=== PATIENT | male | born 1960 | race Caucasian/White ===

== ENCOUNTER 2020-01-27 15:49 | Inpatient (IN) | payer MEDICARE, OTHER, SELFPAY ==
[2020-01-29 03:56] VITALS: BMI 58.0
[2020-01-30] VITALS (12 sets, daily range): BP systolic 127–158; BP diastolic 66–94; PULSE 68–87; RESP 18–20; TEMP 36.3–37.1; O2SAT 94–96
[2020-01-30] MEDS: oxyCODONE HCl Immed Release 5 MG TABLET 10 MG PO ×4 (01:05→20:39)
[2020-01-30] MEDS: Morphine Sulfate 4 MG/ML CARTRIDGE IVPUSH ×7 (01:05→21:46)
[2020-01-30] MEDS: Omeprazole 20 MG CAPSULE.DR PO (08:07)
[2020-01-30] MEDS: 0.9 % Sodium Chloride Flush 3 ML SYRINGE 2 ML IVFLUSH ×3 (08:09→18:00)
--- NOTE | 2020-01-30 08:41 | P.PNGS_ITS ---
Subjective Subjective Interval history: I feel pretty good today, still some incisional pain. Denies nausea or vomiting. Physical Exam Vital Signs and I&O and Narrative: Vital Signs and I&O: Vital Signs Temp 98.3 F 01/30/20 07:58 Pulse 80 01/30/20 07:58 Resp 18 01/30/20 07:58 BP 158/94 H 01/30/20 07:58 Pulse Ox 96 01/30/20 07:58 Intake & Output 01/29/20 01/30/20 01/30/20 18:59 06:59 18:59 Intake Total 400 / 400 Balance 400 / 400 Intake: Intake, Oral Renzo unt 400 / 400 Other: Number of Incont inent Voids 1 Number of Bowel Movements 1 Urine Male Cath. Urine Color Yellow Stool Bedside Commode Stool Color Brown Stool Consistenc y Liquid Continuous Bladd er Irrigation Fluid - Amount I nstilled Condom 500 Body Mass Index 58.0 Resp: Effort & Inspection: normal respiratory effort, no audible wheezes and no cough GI: Inspection: Yes normal to inspection, Yes distended and Yes incision Palpation (GI): Soft to palpation, no guarding and not rigid Auscultation: no rmal bowel sounds Progress Note: A&P Assessment and plan (1) Incisional hernia of anterior abdominal wall without obstruction or gangrene: Status: Acute Assessment and Plan: Patient with a wound seperation in the upper incision. Will return later today to suture in incision closed. Fall Risk Details Current Medications: Current Medications Generic Name Dose Route Start Last Admin Trade Name Freq PRN Reason Stop Dose Admin Anastrozole 1 mg 01/30/20 09:00 Anastrozole 1 Mg Tablet PO DAILY [facility] Apixaban 5 mg 01/30/20 09:00 Apixaban 5 Mg Tablet PO BID [facility] Bupropion HCl 300 mg 01/30/20 09:00 Bupropion Hcl Xl 300 Mg Tab.Er.24h PO DAILY [facility] Duloxetine HCl 60 mg 01/30/20 09:00 Duloxetine Hcl 60 Mg Capsule.Dr PO DAILY [facility] Furosemide 60 mg 01/30/20 09:00 Furosemide 20 Mg Tablet PO BID [facility] Protocol Acetaminophen 1,000 mg in 100 mls @ 400 mls/hr 01/30/20 00:00 Ofirmev IV Q6H PRN ABDOMINAL PAIN Losartan Potassium 25 mg 01/30/20 09:00 Losartan Potassium 25 Mg Tablet PO DAILY [facility] Protocol Melatonin 6 mg 01/30/20 17:08 Melatonin 3 Mg Tablet PO BEDTIME PRN Insomnia Metoprolol Tartrate 25 mg 01/30/20 09:00 Metoprolol Tartrate 25 Mg Tablet PO BID [facility] Protocol Morphine Sulfate 4 mg 01/30/20 00:00 01/30/20 06:42 Morphine Sulfate 4 Mg/Ml Cartridge IVPUSH 4 mg Q3H PRN Administration Pain, Moderate (Pain Scale 4-6 Morphine Sulfate 5 mg 01/30/20 00:00 Morphine Sulfate 8 Mg/Ml Vial IVPUSH Q4H PRN Pain, Severe (Pain Scale 7-10) Omeprazole 20 mg 01/30/20 06:30 01/30/20 08:07 Omeprazole 20 Mg Capsule.Dr PO 20 mg DAILY@0630 [facility] Administration Ondansetron HCl 4 mg 01/30/20 00:00 Ondansetron Hcl 4 Mg/2 Ml Vial IVPUSH Q8H PRN Nausea and Vomiting Oxycodone HCl 5 mg 01/30/20 00:00 Oxycodone Hcl Immed Release 5 Mg Tablet PO Q4H PRN Pain, Moderate (Pain Scale 4-6 Oxycodone HCl 10 mg 01/30/20 00:00 01/30/20 04:30 Oxycodone Hcl Immed Release 5 Mg Tablet PO 10 mg Q4H PRN Administration Pain, Severe (Pain Scale 7-10) Sodium Chloride 2 ml 01/30/20 00:00 01/30/20 08:09 0.9 % Sodium Chloride Flush 3 Ml Syringe IVFLUSH 2 ml QSHIFT [facility] Administration Zolpidem Tartrate 5 mg 01/30/20 00:00 Zolpidem Tartrate 5 Mg Tablet PO BEDTIME PRN Insomnia Time Spent With Patient Time: Total time spent is greater than 50% in coordination of care (as documented) at patient's floor/unit and/or counseling patient: Time with patient: 15 - 24 minutes
[2020-01-30] MEDS: Apixaban 5 MG TABLET PO ×2 (10:29→20:39)
[2020-01-30] MEDS: Anastrozole 1 MG TABLET PO (10:30)
[2020-01-30] MEDS: Losartan Potassium 25 MG TABLET PO (10:31)
[2020-01-30] MEDS: DULoxetine HCl 60 MG CAPSULE.DR PO (10:31)
[2020-01-30] MEDS: buPROPion HCl XL 300 MG TAB.ER.24H PO (10:31)
[2020-01-30] MEDS: Furosemide 20 MG TABLET 60 MG PO ×2 (10:38→20:39)
[2020-01-30] MEDS: Metoprolol Tartrate 25 MG TABLET PO ×2 (10:39→20:39)
--- NOTE | 2020-01-30 15:59 | HO.PM.IMPN ---
Subjective Subjective Date of Service: 01/30/20 Interval History: patient admitted with abdominal pain diagnosed to have multiple ventral hernia status post repair patient abdominal pain is stable denies nausea vomiting had a bowel movement tolerating diet. 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 Physical Exam Vital Signs and I&O and Narrative: Vital Signs and I&O: Vital Signs Temp 97.9 F 01/30/20 15:25 Pulse 84 01/30/20 15:25 Resp 18 01/30/20 15:25 BP 133/74 01/30/20 15:25 Pulse Ox 94 01/30/20 15:25 Intake & Output 01/29/20 01/30/20 01/30/20 18:59 06:59 18:59 Intake Total 400 / 400 420 / 420 Balance 400 / 400 420 / 420 Intake: Intake, Oral Renzo unt 400 / 400 420 / 420 Other: Lunch % Eaten 100% Number of Incont inent Voids 1 Number of Bowel Movements 1 1 Urine Male Cath. Urine Color Yellow Stool Bedside Commode Bathroom Stool Color Brown Brown Stool Consistenc y Liquid Formed Continuous Bladd er Irrigation Fluid - Amount I nstilled Condom 500 Body Mass Index 58.0 Physical Exam Constitutional Awake and alert, No apparent distress Neck is supple Cardiovascular regular rate Respiratory clear to auscultation, No respiratory distress, Gastrointestinal Soft, mild incisional tenderness to palpation, No guarding, no rigidity , wound dehiscence proximal wound. Extremities No clubbing, No cyanosis, No edema, chronic discoloration lower extremities due to chronic edema Neurological Alert & oriented x 3 Objective Data Current Medications Generic Name Dose Route Start Last Admin Trade Name Freq PRN Reason Stop Dose Admin Anastrozole 1 mg 01/30/20 09:00 01/30/20 10:30 Anastrozole 1 Mg Tablet PO 1 mg DAILY [facility] Administration Apixaban 5 mg 01/30/20 09:00 01/30/20 10:29 Apixaban 5 Mg Tablet PO 5 mg BID [facility] Administration Bupropion HCl 300 mg 01/30/20 09:00 01/30/20 10:31 Bupropion Hcl Xl 300 Mg Tab.Er.24h PO 300 mg DAILY [facility] Administration Duloxetine HCl 60 mg 01/30/20 09:00 01/30/20 10:31 Duloxetine Hcl 60 Mg Capsule.Dr PO 60 mg DAILY [facility] Administration Furosemide 60 mg 01/30/20 09:00 01/30/20 10:38 Furosemide 20 Mg Tablet PO 60 mg BID [facility] Administration Protocol Acetaminophen 1,000 mg in 100 mls @ 400 mls/hr 01/30/20 00:00 Ofirmev IV Q6H PRN ABDOMINAL PAIN Losartan Potassium 25 mg 01/30/20 09:00 01/30/20 10:31 Losartan Potassium 25 Mg Tablet PO 25 mg DAILY [facility] Administration Protocol Melatonin 6 mg 01/30/20 17:08 Melatonin 3 Mg Tablet PO BEDTIME PRN Insomnia Metoprolol Tartrate 25 mg 01/30/20 09:00 01/30/20 10:39 Metoprolol Tartrate 25 Mg Tablet PO 25 mg BID [facility] Administration Protocol Morphine Sulfate 4 mg 01/30/20 00:00 01/30/20 14:43 Morphine Sulfate 4 Mg/Ml Cartridge IVPUSH 4 mg Q3H PRN Administration Pain, Moderate (Pain Scale 4-6 Morphine Sulfate 5 mg 01/30/20 00:00 Morphine Sulfate 8 Mg/Ml Vial IVPUSH Q4H PRN Pain, Severe (Pain Scale 7-10) Omeprazole 20 mg 01/30/20 06:30 01/30/20 08:07 Omeprazole 20 Mg Capsule. PO 20 mg DAILY@0630 [facility] Administration Ondansetron HCl 4 mg 01/30/20 00:00 Ondansetron Hcl 4 Mg/2 Ml Vial IVPUSH Q8H PRN Nausea and Vomiting Oxycodone HCl 5 mg 01/30/20 00:00 Oxycodone Hcl Immed Release 5 Mg Tablet PO Q4H PRN Pain, Moderate (Pain Scale 4-6 Oxycodone HCl 10 mg 01/30/20 00:00 01/30/20 13:18 Oxycodone Hcl Immed Release 5 Mg Tablet PO 10 mg Q4H PRN Administration Pain, Severe (Pain Scale 7-10) Sodium Chloride 2 ml 01/30/20 00:00 01/30/20 08:09 0.9 % Sodium Chloride Flush 3 Ml Syringe IVFLUSH 2 ml QSHIFT [facility] Administration Zolpidem Tartrate 5 mg 01/30/20 00:00 Zolpidem Tartrate 5 Mg Tablet PO BEDTIME PRN Insomnia Labs CBC & Chem 7: 01/28/20 05:52 01/28/20 05:52 Labs: Laboratory Results - last 24 hr 01/27/20 01/27/20 01/27/20 10:58 11:00 11:00 MCV Not Rcvd MCH Not Rcvd MCHC Not Rcvd RDW Coeff of Harleen Not Rcvd Plt Count Not Rcvd MPV Not Rcvd Immature Gran % (Auto) Neut % (Auto) Lymph % (Auto) [place] % (Auto) Eos % (Auto) Baso % (Auto) Abs Immat Gran (auto) Absolute Lymphs (auto) Absolute Monos (auto) Absolute Eos (auto) Absolute Basos (auto) Absolute Nucleated RBC Not Rcvd Nucleated RBC % (auto) Not Rcvd Absolute Neutrophils Bicarbonate Not Rcvd Anion Gap Not Rcvd Estimated Creat Clear Not Rcvd Est GFR (Non-Af Amer) Not Rcvd Random Glucose Fasting Glucose Not Rcvd Calcium Not Rcvd Coronavirus (PCR) NEGATIVE Blood Type ABO Group Antibody Screen 01/27/20 01/27/20 01/28/20 11:00 11:25 05:52 MCV MCH MCHC RDW Coeff of Harleen Plt Count MPV Immature Gran % (Auto) Neut % (Auto) Lymph % (Auto) [place] % (Auto) Eos % (Auto) Baso % (Auto) Abs Immat Gran (auto) Absolute Lymphs (auto) Absolute Monos (auto) Absolute Eos (auto) Absolute Basos (auto) Absolute Nucleated RBC Nucleated RBC % (auto) Absolute Neutrophils Bicarbonate 28 Anion Gap 14 Estimated Creat Clear 193.8 Est GFR (Non-Af Amer) > 60 Random Glucose 127 H Fasting Glucose Calcium 8.3 L D Coronavirus (PCR) Blood Type A Positive ABO Group Not Rcvd Antibody Screen NEGATIVE 01/28/20 05:52 MCV 100.9 H MCH 32.1 MCHC 31.8 RDW Coeff of Harleen 15.1 Plt Count 196 MPV 10.1 Immature Gran % (Auto) 0.4 Neut % (Auto) 85.3 H Lymph % (Auto) 5.9 L [place] % (Auto) 8.2 Eos % (Auto) 0.0 Baso % (Auto) 0.2 Abs Immat Gran (auto) 0.05 H Absolute Lymphs (auto) 0.7 L Absolute Monos (auto) 1.0 Absolute Eos (auto) 0.0 Absolute Basos (auto) 0.0 Absolute Nucleated RBC 0.000 Nucleated RBC % (auto) 0.0 Absolute Neutrophils 10.2 H Bicarbonate Anion Gap Estimated Creat Clear Est GFR (Non-Af Amer) Random Glucose Fasting Glucose Calcium Coronavirus (PCR) Blood Type ABO Group Antibody Screen
[2020-01-31] VITALS (10 sets, daily range): BP systolic 140–154; BP diastolic 75–86; PULSE 68–72; RESP 16–20; TEMP 35.6–36.9; O2SAT 92–97
[2020-01-31] MEDS: 0.9 % Sodium Chloride Flush 3 ML SYRINGE 2 ML IVFLUSH ×2 (01:34→08:28)
[2020-01-31] MEDS: Morphine Sulfate 4 MG/ML CARTRIDGE IVPUSH ×5 (02:03→15:33)
[2020-01-31] MEDS: Acetaminophen 325 MG TABLET 650 MG PO (02:22)
[2020-01-31] MEDS: oxyCODONE HCl Immed Release 5 MG TABLET 10 MG PO ×3 (04:16→14:03)
[2020-01-31] MEDS: Omeprazole 20 MG CAPSULE.DR PO (06:20)
--- NOTE | 2020-01-31 08:22 | P.PNGS_ITS ---
Subjective Subjective Interval history: No new complaints. Incisional pain improving. Tolerating solid diet, moving his bowels. Has been OOB and ambulating. <AMBROSIO Martinez Last Filed: 01/31/20 08:32> Physical Exam Vital Signs and I&O and Narrative: Vital Signs and I&O: Vital Signs Temp 96.1 F L 01/31/20 07:43 Pulse 71 01/31/20 07:43 Resp 16 01/31/20 07:43 BP 154/86 H 01/31/20 07:43 Pulse Ox 92 01/31/20 07:43 Intake & Output 01/30/20 01/31/20 01/31/20 18:59 06:59 18:59 Intake Total 840 / 1500 660 / 1500 Output Total 500 / 500 Balance 340 / 1000 660 / 1000 Urine Output (Aver age ml/kg/hr) 0.21 0.21 Intake: Intake, Oral Renzo unt 840 / 1500 660 / 1500 Output: Output, Urine Am ount 500 / 500 Other: Lunch % Eaten 100% Dinner % Eaten 100% Number of Bowel Movements 1 Urine Urinal Urine Color Yellow Stool Bathroom Bathroom Stool Color Brown Brown Stool Consistenc y Formed Formed Body Mass Index 58.0 <AMBROSIO Martinez Last Filed: 01/31/20 08:32> Const: General: comfortable, no acute distress and alert <AMBROSIO Martinez Last Filed: 01/31/20 08:32> Orientation/consciousness: patient oriented x3 <AMBROSIO Martinez Last Filed: 01/31/20 08:32> Eyes: Sclerae: sclerae normal <AMBROSIO Martinez Last Filed: 01/31/20 08:32> Resp: Effort & Inspection: normal respiratory effort <AMBROSIO Martinez Filed: 01/31/20 08:32> Cardio: Rate: regular rate <AMBROSIO Martinez Filed: 01/31/20 08:32> GI: Inspection: Yes incision (dev and sutures intact, some erythema centrally) <AMBROSIO Martinez Last Filed: 01/31/20 08:32> Palpation (GI): Soft to palpation, Tenderness to palpation present (GI) (surrounding incisions), no guarding and not rigid <Vanda Gunderson PA-C Syeda Last Filed: 01/31/20 08:32> Skin: Rashes: no rashes <AMBROSIO Martinez Last Filed: 01/31/20 08:32> Neuro: General: patient oriented x3 <AMBROSIO Martinez Last Filed: 01/31/20 08:32> Progress Note: A&P Assessment and plan (1) Abdominal pain: Status: Acute <AMBROSIO Martinez Last Filed: 01/31/20 08:32> (2) Morbid obesity with BMI of 50.0-59.9, adult: Status: Acute <AMBROSIO Martinez Last Filed: 01/31/20 08:32> (3) Atrial fibrillation: Status: Acute <AMBROSIO Martinez Last Filed: 01/31/20 08:32> (4) Incisional hernia of anterior abdominal wall without obstruction or gangrene: Status: Acute <Vanda Gunderson PA-C Syeda Last Filed: 01/31/20 08:32> Assessment and Plan: s/p repair of multiple incisional hernias with mesh - some separation of upper incision, sutures placed yesterday which remain intact. Doing well post op, comfortable. Incision is clean with some mild erythema likely from irritation from dev/sutures. Patient feels ready for discharge today. Will d/c to home with VNA services. <Vanda Gunderson PA-C Syeda Last Filed: 01/31/20 08:32> Fall Risk Details Current Medications: Current Medications Generic Name Dose Route Start Last Admin Trade Name Freq PRN Reason Stop Dose Admin Acetaminophen 650 mg 01/31/20 02:17 01/31/20 02:22 Acetaminophen 325 Mg Tablet PO 650 mg Q6H PRN Administration Headache Anastrozole 1 mg 01/30/20 09:00 01/30/20 10:30 Anastrozole 1 Mg Tablet PO 1 mg DAILY [facility] Administration Apixaban 5 mg 01/30/20 09:00 01/30/20 20:39 Apixaban 5 Mg Tablet PO 5 mg BID [facility] Administration Bupropion HCl 300 mg 01/30/20 09:00 01/30/20 10:31 Bupropion Hcl Xl 300 Mg Tab.Er.24h PO 300 mg DAILY [facility] Administration Duloxetine HCl 60 mg 01/30/20 09:00 01/30/20 10:31 Duloxetine Hcl 60 Mg Capsule. PO 60 mg DAILY [facility] Administration Furosemide 60 mg 01/30/20 09:00 01/30/20 20:39 Furosemide 20 Mg Tablet PO 60 mg BID [facility] Administration Protocol Acetaminophen 1,000 mg in 100 mls @ 400 mls/hr 01/30/20 00:00 Ofirmev IV Q6H PRN ABDOMINAL PAIN Losartan Potassium 25 mg 01/30/20 09:00 01/30/20 10:31 Losartan Potassium 25 Mg Tablet PO 25 mg DAILY [facility] Administration Protocol Melatonin 6 mg 01/30/20 17:08 Melatonin 3 Mg Tablet PO BEDTIME PRN Insomnia Metoprolol Tartrate 25 mg 01/30/20 09:00 01/30/20 20:39 Metoprolol Tartrate 25 Mg Tablet PO 25 mg BID [facility] Administration Protocol Morphine Sulfate 4 mg 01/30/20 00:00 01/31/20 06:20 Morphine Sulfate 4 Mg/Ml Cartridge IVPUSH 4 mg Q3H PRN Administration Pain, Moderate (Pain Scale 4-6 Morphine Sulfate 5 mg 01/30/20 00:00 Morphine Sulfate 8 Mg/Ml Vial IVPUSH Q4H PRN Pain, Severe (Pain Scale 7-10) Omeprazole 20 mg 01/30/20 06:30 01/31/20 06:20 Omeprazole 20 Mg Capsule. PO 20 mg DAILY@0630 [facility] Administration Ondansetron HCl 4 mg 01/30/20 00:00 Ondansetron Hcl 4 Mg/2 Ml Vial IVPUSH Q8H PRN Nausea and Vomiting Oxycodone HCl 5 mg 01/30/20 00:00 Oxycodone Hcl Immed Release 5 Mg Tablet PO Q4H PRN Pain, Moderate (Pain Scale 4-6 Oxycodone HCl 10 mg 01/30/20 00:00 01/31/20 04:16 Oxycodone Hcl Immed Release 5 Mg Tablet PO 10 mg Q4H PRN Administration Pain, Severe (Pain Scale 7-10) Sodium Chloride 2 ml 01/30/20 00:00 01/31/20 01:34 0.9 % Sodium Chloride Flush 3 Ml Syringe IVFLUSH 2 ml QSHIFT [facility] Administration Zolpidem Tartrate 5 mg 01/30/20 00:00 Zolpidem Tartrate 5 Mg Tablet PO BEDTIME PRN Insomnia <AMBROSIO Martinez Last Filed: 01/31/20 08:32> Time Spent With Patient Time: Total time spent is greater than 50% in coordination of care (as d ocumented) at patient's floor/unit and/or counseling patient: <AMBROSIO Martinez Last Filed: 01/31/20 08:32> Time with patient: 15 - 24 minutes <AMBROSIO Martinez Last Filed: 01/31/20 08:32> No Severe Sepsis: No Severe Sepsis <AMBROSIO Martinez Last Filed: 01/31/20 08:32>
[2020-01-31] MEDS: Anastrozole 1 MG TABLET PO (08:24)
[2020-01-31] MEDS: buPROPion HCl XL 300 MG TAB.ER.24H PO (08:24)
[2020-01-31] MEDS: DULoxetine HCl 60 MG CAPSULE.DR PO (08:24)
[2020-01-31] MEDS: Furosemide 20 MG TABLET 60 MG PO (08:24)
[2020-01-31] MEDS: Apixaban 5 MG TABLET PO (08:25)
[2020-01-31] MEDS: Losartan Potassium 25 MG TABLET PO (08:26)
[2020-01-31] MEDS: Metoprolol Tartrate 25 MG TABLET PO (08:27)
--- NOTE | 2020-01-31 09:04 | MHC.CM.PN ---
Pt will be discharged home today with no services pt will arrange transportation
--- NOTE | 2020-01-31 13:01 | P.DS_ITS ---
DS: Providers Provider Date of admission: 01/27/20 15:49 Primary care physician: Unknown Physician Consults: 01/29/20 06:30 Consult to Hospitalist Routine Consulting Provider: Yelena Santos Reason for consultation: Afib, H/O CHF, S/P repair of incisional hernias DS: Diagnosis Discharge Diagnosis (1) Abdominal pain: Status: Acute (2) Morbid obesity with BMI of 50.0-59.9, adult: Status: Acute (3) Atrial fibrillation: Status: Acute (4) Incisional hernia of anterior abdominal wall without obstruction or gangrene: Status: Acute DS: Summary Hospital Course Hospital Course: Brief HPI: 59 year old male with previous complicated surgical history including umbilical hernia repair 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 CT scan was peformed which demonstrated approximately 5 incisional hernias throughout the anterior abdominal wall. He now presents for repair. On 01/27/20, repair of multiple incisional hernias with mesh was performed by Dr. Salas Guardado without immediate complications. The patient tolerated the procedure well and was admitted to [facility] post operatively. A hospitalist consult was obtained for management of his medical comorbidities. The patient had an uncomplicated post operative course. He was advanced to a solid diet on POD #1 and his eliquis was resumed. He initially had difficulty with pain control and his home oxycodone dose was resumed with morphine IV PRN ordered with better control over the next few post operative days. He was ambulated and seen by PT. His activity increased gradually during his stay. During his dressing change on POD #3, he was noted to have some separation of the upper incision which was repaired with nylon sutures. On POD #4, he was tolerating a solid diet with good GI fxn. His incisional pain was well controlled. He was OOB and ambulating without difficulty. He had a benign abdominal exam and clean and intact incision. He felt ready for discharge. He was discharged to home on 01/31/20 in stable condition with VNA services. Status at Discharge Functional status at discharge: uses cane/walker Overall status at discharge: patient is progressing back to baseline Time Spent with Patient Time attestation: Total time spent providing and/or coordinating discharge services: Time spent: Less than 30 minutes Specific discharge activities: No heavy lifting, exercise, tub bath. Quality: VTE Deep Vein Thrombosis/Pulmonary Embolism Present on Admission: No Physical Exam Vital Signs and I&O and Narrative: Vital Signs and I&O: Vital Signs Temp 97.3 F 01/31/20 11:22 Pulse 72 01/31/20 11:22 Resp 20 01/31/20 12:29 BP 154/75 H 01/31/20 11:22 Pulse Ox 97 01/31/20 11:22 Intake & Output 01/30/20 01/31/20 01/31/20 18:59 06:59 18:59 Intake Total 840 / 1500 660 / 1500 100 / 100 Output Total 500 / 500 850 / 850 Balance 340 / 1000 660 / 1000 -750 / -750 Urine Output (Aver age ml/kg/hr) 0.21 0.21 0.35 Intake: Intake, Oral Renzo unt 840 / 1500 660 / 1500 100 / 100 Output: Output, Urine Am ount 500 / 500 850 / 850 Other: Breakfast % Eate n 100% Lunch % Eaten 100% Dinner % Eaten 100% Number of Bowel Movements 1 Urine Urinal Urine Color Yellow Stool Bathroom Bathroom Stool Color Brown Brown Stool Consistenc y Formed Formed Body Mass Index 58.0 Const: General: comfortable, no acute distress and alert Orientation/consciousness: patient oriented x3 Eyes: Sclerae: sclerae normal Resp: Effort & Inspection: normal respiratory effort GI: Inspection: Yes incision (some mild erythema centrally of both incisions) Palpation (GI): Soft to palpation, Tenderness to palpation present (GI) (mild, at incision), no guarding, not rigid and No Rebound tenderness present Skin: Rashes: no rashes Neuro: General: patient oriented x3 DS: Data Data Completed and Pending Labs on day of discharge: Labs from last 24 hours 01/27/20 11:25 Blood Type A Positive Antibody Screen NEGATIVE Discharge Plan Discharge Patient Disposition: Home Health Service Referrals: Salas Guardado MD [Physician] - 1 Week Physician,Unknown [Primary Care Provider] - Discharge Medications: Continued multivitamin Tablet 1 tab PO DAILY RF: 0 pantoprazole [Protonix] 40 mg Tablet,Delayed Release (Dr/Ec) 40 mg PO DAILY RF: 0 metoprolol tartrate 25 mg Tablet 25 mg PO BID RF: 0 oxycodone 10 mg Tablet 10 mg PO Q6H PRN (Reason: Pain (Scale Score 4-6)) RF: 0 wheat dextrin 1 gram Tablet PO RF: 0 raspberry ketone 100 mg Capsule 100 mg PO DAILY RF: 0 COMPOUND PAIN CREME cream 1 topical DAILY RF: 0 Cbd Oil oil 1 topical DAILY RF: 0 Thca Oil oil 1 PO DAILY RF: 0 Tumeric tablet 400 mg PO DAILY RF: 0 testosterone cypionate 200 mg/mL oil 100 mg IM Q2W RF: 0 anastrozole 1 mg tablet 1 mg PO DAILY RF: 0 acetaminophen [Tylenol Extra Strength] 500 mg Tablet 1,000 mg PO Q6H PRN (Reason: Pain) RF: 0 calcium carbonate [Calcium 600] 600 mg calcium (1,500 mg) Tablet 600 mg PO DAILY RF: 0 acyclovir 5 % Cream 1 applic TOPICAL RF: 0 bupropion HCl 300 mg tablet extended release 24 hr 300 mg PO QAM RF: 0 duloxetine 60 mg capsule,delayed release(DR/EC) 60 mg PO DAILY RF: 0 cholecalciferol (vitamin D3) 125 mcg (5,000 unit) Tablet 125 mcg PO DAILY RF: 0 Eliquis 5 mg tablet 5 mg PO BID RF: 0 loperamide [Imodium A-D] 2 mg Capsule 2 mg PO QID PRN (Reason: Diarrhea) RF: 0 melatonin 3 mg Tablet 6 mg PO BEDTIME PRN (Reason: Insomnia) RF: 0 losartan 25 mg tablet 25 mg PO DAILY RF: 0 furosemide 20 mg tablet 60 mg PO BID RF: 0 Culturelle PO DAILY RF: 0 Discharge Orders: Discharge Order (Routine); Ordered 01/31/20 Ordered By: Vanda Gunderson Diet: regular diet Activity on Discharge: No heavy lifting Discharge Date/Time: 01/31/20 17:05 Visit Report Forms: Patient Portal Discharge page Care Plan Goals: Return to baseline health and activity Health Concerns: Atrial fibrillation, multiple incisional hernias s/p repair of incisional hernias with mesh Plan of Treatment: Pain control, discharge to home
--- NOTE | 2020-01-31 14:11 | P.PNIM_ITS ---
Subjective Subjective Date of Service: 01/31/20 Interval History: patient admitted with abdominal pain diagnosed to have multiple ventral hernia status post repair patient abdominal pain is stable denies nausea vomiting had a bowel movement tolerating diet. Review of Systems [employer] no headache, no dizziness CVS no chest pain, no palpitation no urinary symptoms of urgency frequency or dysuria skin no rash Physical Exam Vital Signs and I&O and Narrative: Vital Signs and I&O: Vital Signs Temp 97.3 F 01/31/20 11:22 Pulse 72 01/31/20 11:22 Resp 20 01/31/20 12:29 BP 154/75 H 01/31/20 11:22 Pulse Ox 97 01/31/20 11:22 Intake & Output 01/30/20 01/31/20 01/31/20 18:59 06:59 18:59 Intake Total 840 / 1500 660 / 1500 100 / 100 Output Total 500 / 500 850 / 850 Balance 340 / 1000 660 / 1000 -750 / -750 Urine Output (Aver age ml/kg/hr) 0.21 0.21 0.35 Intake: Intake, Oral [place] unt 840 / 1500 660 / 1500 100 / 100 Output: Output, Urine Am ount 500 / 500 850 / 850 Other: Breakfast % Eate n 100% Lunch % Eaten 100% Dinner % Eaten 100% Number of Bowel Movements 1 Urine Urinal Urine Color Yellow Stool Bathroom Bathroom Stool Color Brown Brown Stool Consistenc y Formed Formed Body Mass Index 58.0 Physical Exam Constitutional Awake and alert, No apparent distress Neck is supple Cardiovascular regular rate Respiratory clear to auscultation, No respiratory distress, Gastrointestinal Soft, mild incisional tenderness to palpation, No guarding, no rigidity. Extremities No clubbing, No cyanosis, No edema, chronic discoloration lower extremities due to chronic edema Neurological Alert & oriented x 3 Objective Data Current Medications Generic Name Dose Route Start Last Admin Trade Name Freq PRN Reason Stop Dose Admin Acetaminophen 650 mg 01/31/20 02:17 01/31/20 02:22 Acetaminophen 325 Mg Tablet PO 650 mg Q6H PRN Administration Headache Anastrozole 1 mg 01/30/20 09:00 01/31/20 08:24 Anastrozole 1 Mg Tablet PO 1 mg DAILY CRYSTAL Administration Apixaban 5 mg 01/30/20 09:00 01/31/20 08:25 Apixaban 5 Mg Tablet PO 5 mg BID CRYSTAL Administration Bupropion HCl 300 mg 01/30/20 09:00 01/31/20 08:24 Bupropion Hcl Xl 300 Mg Tab.Er.24h PO 300 mg DAILY CRYSTAL Administration Duloxetine HCl 60 mg 01/30/20 09:00 01/31/20 08:24 Duloxetine Hcl 60 Mg Capsule. PO 60 mg DAILY CRYSTAL Administration Furosemide 60 mg 01/30/20 09:00 01/31/20 08:24 Furosemide 20 Mg Tablet PO 60 mg BID CRYSTAL Administration Protocol Acetaminophen 1,000 mg in 100 mls @ 400 mls/hr 01/30/20 00:00 Ofirmev IV Q6H PRN ABDOMINAL PAIN Losartan Potassium 25 mg 01/30/20 09:00 01/31/20 08:26 Losartan Potassium 25 Mg Tablet PO 25 mg DAILY CRYSTAL Administration Protocol Melatonin 6 mg 01/30/20 17:08 Melatonin 3 Mg Tablet PO BEDTIME PRN Insomnia Metoprolol Tartrate 25 mg 01/30/20 09:00 01/31/20 08:27 Metoprolol Tartrate 25 Mg Tablet PO 25 mg BID CRYSTAL Administration Protocol Morphine Sulfate 4 mg 01/30/20 00:00 01/31/20 12:29 Morphine Sulfate 4 Mg/Ml Cartridge IVPUSH 4 mg Q3H PRN Administration Pain, Moderate (Pain Scale 4-6 Morphine Sulfate 5 mg 01/30/20 00:00 Morphine Sulfate 8 Mg/Ml Vial IVPUSH Q4H PRN Pain, Severe (Pain Scale 7-10) Omeprazole 20 mg 01/30/20 06:30 01/31/20 06:20 Omeprazole 20 Mg Capsule. PO 20 mg DAILY@0630 CRYSTAL Administration Ondansetron HCl 4 mg 01/30/20 00:00 Ondansetron Hcl 4 Mg/2 Ml Vial IVPUSH Q8H PRN Nausea and Vomiting Oxycodone HCl 5 mg 01/30/20 00:00 Oxycodone Hcl Immed Release 5 Mg Tablet PO Q4H PRN Pain, Moderate (Pain Scale 4-6 Oxycodone HCl 10 mg 01/30/20 00:00 01/31/20 14:03 Oxycodone Hcl Immed Release 5 Mg Tablet PO 10 mg Q4H PRN Administration Pain, Severe (Pain Scale 7-10) Sodium Chloride 2 ml 01/30/20 00:00 01/31/20 08:28 0.9 % Sodium Chloride Flush 3 Ml Syringe IVFLUSH 2 ml QSHIFT CRYSTAL Administration Zolpidem Tartrate 5 mg 01/30/20 00:00 Zolpidem Tartrate 5 Mg Tablet PO BEDTIME PRN Insomnia Labs CBC & Chem 7: 01/28/20 05:52 01/28/20 05:52 Labs: Laboratory Results - last 24 hr 01/27/20 11:25 Blood Type A Positive Antibody Screen NEGATIVE Quality VTE Deep Vein Thrombosis/Pulmonary Embolism Present on Admission: No Assessment and Plan (1) Morbid obesity with BMI of 50.0-59.9, adult: Status: Acute (2) Atrial fibrillation: Status: Acute (3) Incisional hernia of anterior abdominal wall without obstruction or gangrene: Status: Acute (4) Abdominal pain: Status: Acute Assessment and Plan: 59 year old Male was admitted 01/27/20 with Multiple incisional hernias involv ing the upper midline incision and admitted under surgery. Status post multiple hernia repair s/p repair of approximately 5 hernias with mesh. Patient tolerating diet, persistent abdominal pain but improving cont oxy and morphine , had proximal wound sutured by General surgery, no issues this m orning and is scheduled to be discharged home. continue oxycodone as outpatient, patient medically stable for discharge. # history of AFib - heart rate maintained, continue metoprolol for rate control, and Eliquis for anticoagulation # CHF No acute exacerbation continue furosemide 60 mg b.i.d. continue metoprolol as well as losartan # hypertension stable continue losartan # mood disorder no acute issues, continue duloxetine, Wellbutrin DVT prophylaxis: Eliquis.
== END 2020-01-31 17:05 | disposition home health service (06) | DRG 354 ==
PROVIDERS: Admitting Provider Surgery; Visit Provider Surgery
DX: K43.0 Incisional hernia with obstruction, without gangrene (principal); Z68.43 Body mass index [BMI] 50.0-59.9, adult; Z98.84 Bariatric surgery status; I48.91 Unspecified atrial fibrillation; E66.01 Morbid (severe) obesity due to excess calories; I50.9 Heart failure, unspecified; Z79.01 Long term (current) use of anticoagulants; I11.0 Hypertensive heart disease with heart failure; Z79.899 Other long term (current) drug therapy; Z11.59 Encounter for screening for other viral diseases
CPT/HCPCS: 80048; 85025; 85027; 86850; 86900; 86901; 88302; 94660; 97116; 97162; C1781; J0131; J0330; J1170; J2250; J2370; J2405; J2765; J3010; J3370; U0003

== ENCOUNTER → 2020-02-18 10:47 | Outpatient (BNVA) | payer MEDICARE, OTHER, SELFPAY | PROVIDERS: Visit Provider Surgery | DX: T81.31XA Disruption of external operation (surgical) wound, not elsewhere classified, initial encounter (principal) | CPT/HCPCS: 99212 ==